=== PATIENT | female | born 1985 | race Caucasian/White ===

== ENCOUNTER 2019-07-21 17:53 | Emergency (ER) | payer BC ==
[2019-07-21] MEDS ORDERED: KETOROLAC 30 MG/ML 1 ML VIAL IM STA (18:25)
--- NOTE | 2019-07-21 18:30 | ED ---
General Adult HPI - General Chief complaint: Upper Respiratory Infection Stated complaint: SOB, cough Time Seen by Provider: 07/21/19 18:08 Source: patient, RN notes reviewed, old records reviewed Mode of arrival: ambulatory Limitations: no limitations - History of Present Illness Initial comments: 34-year-old female presented for evaluation of cough, sore throat, fever. Patient states for the past 3 days she's had a nonproductive dry cough. She's had sore throat. She's had diffuse myalgias and fever and chills. She has been self quarantining secondary to [place] virus pandemic. She has no known contacts with the virus. History of fibromyalgia previous tobacco use. No vomiting or diarrhea. No one else is sick in the home. - Related Data Home Medications Medication Instructions Recorded Confirmed ALPRAZolam [Xanax] 0.5 mg PO BID PRN 07/21/19 07/21/19 Albuterol Inhaler [Ventolin Hfa 2 puff INHALATION RT-Q6H PRN 07/21/19 07/21/19 Inhaler] Budesonide/Formoterol Fumarate 2 puff INHALATION RT-BID 07/21/19 07/21/19 [Symbicort 160-4.5 Mcg Inhaler] Gabapentin [Neurontin] 300 mg PO BID 07/21/19 07/21/19 Levothyroxine Sodium [Synthroid] 75 mcg PO DAILY 07/21/19 07/21/19 Levothyroxine Sodium [Synthroid] 200 mcg PO DAILY 07/21/19 07/21/19 Propranolol [Inderal] 10 mg PO BID 07/21/19 07/21/19 QUEtiapine XR [SEROquel XR] 150 mg PO HS 07/21/19 07/21/19 Valsartan/Hydrochlorothiazide 1 tab PO DAILY 07/21/19 07/21/19 [Valsartan-Hctz 80-12.5 mg Tab] hydrOXYzine HCL [Atarax] 50 mg PO TID PRN 07/21/19 07/21/19 traZODone HCL 150 mg PO HS 07/21/19 07/21/19 Previous Rx's Medication Instructions Recorded Ibuprofen [Motrin] 600 mg PO Q8HR PRN #24 tab 07/21/19 Allergies Allergy/AdvReac Type Severity Reaction Status Date / Time No Known Allergies Allergy Verified 07/21/19 19:08 Review of Systems ROS Statement: Those systems with pertinent positive or pertinent negative responses have been documented in the HPI. ROS Other: All systems not noted in ROS Statement are negative. Past Medical History Past Medical History: Thyroid Disorder Additional Past Medical History / Comment(s): ovarian cyst History of Any Multi-Drug Resistant Organisms: None Reported Past Surgical History: Breast Surgery, Section Past Psychological History: Anxiety, Bipolar, Depression, PTSD Smoking Status: Former smoker Past Alcohol Use History: Occasional Past Drug Use History: Marijuana General Exam Limitations: no limitations General appearance: alert, in no apparent distress Head exam: Present: atraumatic, normocephalic Eye exam: Present: normal appearance, PERRL ENT exam: Present: mucous membranes moist, other (Mild pharyngeal erythema, no tonsillar swelling or exudate) Neck exam: Present: normal inspection. Absent: tenderness, meningismus Respiratory exam: Present: normal lung sounds bilaterally, other (Good air entry, no tachypnea, no wheezing, no rhonchi or rales.). Absent: respiratory distress, wheezes, rales, rhonchi Cardiovascular Exam: Present: regular rate, normal rhythm, normal heart sounds GI/Abdominal exam: Present: soft. Absent: distended, tenderness, guarding, rebound Extremities exam: Present: normal inspection, normal capillary refill. Absent: pedal edema, calf tenderness Neurological exam: Present: alert, oriented X3, CN II-XII intact. Absent: motor sensory deficit Psychiatric exam: Present: normal affect, normal mood Skin exam: Present: warm, dry, intact. Absent: cyanosis, diaphoretic Course Vital Signs 07/21/19 17:59 Temperature 98.8 F Pulse Rate 93 Respiratory 20 Rate Blood Pressure 154/68 O2 Sat by Pulse 98 Oximetry Medical Decision Making - Medical Decision Making 34-year-old female with constellation of symptoms likely reflecting viral infection, possible coronavirus. She is not hypoxic, no respiratory distress, lungs are clear. She is well-appearing with stable vitals. Chest x-rays performed this is negative for focal pneumonia, no acute findings. She's given Toradol and tramadol for pain. She will closely monitor symptoms at home. Secondary complaint of ovarian cyst with history of ovarian cysts. Ultrasound is performed which does show small left ovarian cysts as well as a cervical cyst. No acute findings, no evidence to inversion. Patient repeatedly asking for narcotics, asking to be discharged with [place] prescription. I do feel that this patient is exhibiting drug-seeking behavior. She's given adequate pain control the emergency department and will be discharged with anti-inflammator ies, no narcotic medications given. She will return with any worsening dyspnea worsening symptoms of any kind. She will follow with her primary care physician. - Lab Data Lab Results 07/21/19 07/21/19 Range/Units 19:35 19:37 Urine Color Yellow Urine Appearance Clear (Clear) Urine pH 5.5 (5.0-8.0) Ur Specific [place] 1.021 (1.001-1.035) Urine Protein Negative (Negative) Urine Glucose (UA) Negative (Negative) Urine Ketones Negative (Negative) Urine Blood Negative (Negative) Urine Nitrite Negative (Negative) Urine Bilirubin Negative (Negative) Urine Urobilinogen <2.0 (<2.0) mg/dL Ur Leukocyte Esterase Negative (Negative) Urine HCG, Qual Not Detected (Not Detectd) Disposition Clinical Impression: Viral infection, Ovarian cyst Disposition: HOME SELF-CARE Condition: Good Instructions (If sedation given, give patient instructions): Upper Respiratory Infection (ED), Ovarian Cyst (ED) Prescriptions: Ibuprofen [Motrin] 600 mg PO Q8HR PRN #24 tab PRN Reason: Pain Is patient prescribed a controlled substance at d/c from ED?: No Referrals: None,Stated [Primary Care Provider] - 1-2 days Pedro Norris MD [STAFF PHYSICIAN] - 1-2 days Time of Disposition: 20:30
[2019-07-21] MEDS: traMADol 50 MG TAB PO STA ×2 (18:52→19:03)
--- NOTE | 2019-07-21 19:26 | XR ---
EXAMINATION TYPE: XR chest 1V portable DATE OF EXAM: 07/21/2019 COMPARISON: NONE HISTORY: Chest pain TECHNIQUE: Single frontal view of the chest is obtained. FINDINGS: There is no focal air space opacity, pleural effusion, or pneumothorax seen. The cardiac silhouette size is within normal limits. The osseous structures are intact. IMPRESSION: 1. No acute process.
[2019-07-21 19:44] LABS: Appearance,Urine Clear (Clear); Bilirubin,Urine Negative (Negative); Blood,Urine Negative (Negative); Color,Urine Yellow; Glucose,Urine (UA) Negative (Negative); Ketones,Urine Negative (Negative); Leukocyte Esterase,Urine Negative (Negative); Nitrite,Urine Negative (Negative); PH, Urine 5.5 (5.0-8.0); Protein,Urine Negative (Negative); Specific Gravity,Urine 1.021 (1.001-1.035); Urobilinogen,Urine <2.0 mg/dL (<2.0)
[2019-07-21] MEDS ORDERED: ALPRAZolam 0.5 MG TAB PO STA (19:56)
--- NOTE | 2019-07-21 20:23 | US ---
EXAMINATION TYPE: US transvaginal DATE OF EXAM: 07/21/2019 COMPARISON: NONE CLINICAL HISTORY: pelvic pain. Pelvic pain x 2 days. Hx ovarian cyst. . TECHNIQUE: Transvaginal (TV). Date of LMP: 07/17/2019 EXAM MEASUREMENTS: Uterus: 7.9 x 5.4 x 4.1 cm Endometrial Stripe: Not clearly distinguished. Right Ovary: Not seen. Left Ovary: 3.8 x 2.5 x 2.1 cm 1. Uterus: Anteverted. Appears heterogeneous. Multiple anechoic areas seen. Largest measures: 0.8 x 0.7 x 0.6 cm. 2. Endometrium: Not clearly distinguished. 3. Right Ovary: Not seen. 4. Left Ovary: Measures slightly enlarged. Multiple anechoic areas seen. Some appear to be septated. Largest measures: 1.9 x 1.5 x 0.9 cm. Spectral, color and waveform doppler imaging shows good arterial and venous flow within the left ov nancy; there is no evidence for ovarian torsion of the left ovary. Right ovary is not seen by ultrasoun d. 5. Bilateral Adnexa: Appear to be wnl 6. Posterior cul-de-sac: Appears to be wnl IMPRESSION: Small cervical cysts. Simple left ovarian cyst. No evidence of ovarian torsion.
[2019-07-21] MEDS ORDERED: HYDROcodone/APAP 5-325MG 1 EACH TAB PO STA (20:28)
[2019-07-21 20:47] VITALS: BP 137/77; PULSE 74; RESP 18; TEMP 98
== END 2019-07-21 20:48 | disposition home or self-care (01) ==
LOC: EC 17:53
DX: B34.9 Viral infection, unspecified (principal); N83.202 Unspecified ovarian cyst, left side; N88.8 Other specified noninflammatory disorders of cervix uteri; F41.9 Anxiety disorder, unspecified; F31.9 Bipolar disorder, unspecified; E07.9 Disorder of thyroid, unspecified; Z79.51 Long term (current) use of inhaled steroids; Z79.890 Hormone replacement therapy; Z79.899 Other long term (current) drug therapy; Z87.891 Personal history of nicotine dependence; Z76.5 Malingerer [conscious simulation]
CPT/HCPCS: 71045; 76830; 81003; 81025; 93976; 99285

== ENCOUNTER 2020-11-17 11:15 | Emergency (ER) | payer BC ==
[2020-11-17 11:20] VITALS: TEMP 98.1
[2020-11-17] MEDS ORDERED: KETOROLAC 15 MG/ML 1 ML VIAL IVP STA (11:53)
[2020-11-17] MEDS ORDERED: SODIUM CHLORIDE 0.9% 1,000 ML IV STA (11:53)
[2020-11-17] MEDS ORDERED: ONDANSETRON 4 MG/2 ML VIAL IVP STA ×2 (11:54→12:50)
[2020-11-17 12:22] LABS: Appearance,Urine Clear (Clear); Basophils # (A) 0.1 k/uL (0-0.2); Basophils % (A) 2 %; Bilirubin,Urine Negative (Negative); Blood,Urine Negative (Negative); Color,Urine Yellow; Eosinophils # (A) 0.4 k/uL (0-0.7); Eosinophils % (A) 5 %; Glucose,Urine (UA) Negative (Negative); HCT 42.6 % (34.0-46.0); HGB 13.9 gm/dL (11.4-16.0); Ketones,Urine Negative (Negative); Leukocyte Esterase,Urine Negative (Negative); Lymphocytes # (A) 1.8 k/uL (1.0-4.8); Lymphocytes % (A) 23 %; MCH 31.5 pg (25.0-35.0); MCHC 32.7 g/dL (31.0-37.0); MCV 96.5 fL (80.0-100.0); Monocytes # (A) 0.5 k/uL (0-1.0); Monocytes % (A) 6 %; Neutrophils % (A) 62 %; Nitrite,Urine Negative (Negative); PH, Urine 5.5 (5.0-8.0); Platelet Count 310 k/uL (150-450); Protein,Urine Negative (Negative); RBC 4.41 m/uL (3.80-5.40); RDW 14.7 % (11.5-15.5); Specific Gravity,Urine 1.013 (1.001-1.035); Urobilinogen,Urine <2.0 mg/dL (<2.0); WBC 8.1 k/uL (3.8-10.6)
[2020-11-17] MEDS ORDERED: HYDROmorphone 1 MG/ML 1 ML SYRINGE IVP STA (12:29)
--- NOTE | 2020-11-17 12:30 | CT ---
EXAMINATION TYPE: CT abdomen pelvis wo con DATE OF EXAM: 11/17/2020 COMPARISON: HISTORY: right flank pain CT DLP: 1219 mGycm Automated exposure control for dose reduction was used. TECHNIQUE: Helical acquisition of images was performed from the lung bases through the pelvis. FINDINGS: LUNG BASES: No significant abnormality is appreciated. LIVER/GB: No significant abnormality is appreciated. PANCREAS: No significant abnormality is seen. SPLEEN: No significant abnormality is seen. ADRENALS: No significant abnormality is seen. KIDNEYS: No significant abnormality is seen. FREE AIR: No free air is visualized RETROPERITONEAL ADENOPATHY: None visualized URINARY BLADDER: No significant abnormality is seen. PELVIC ADENOPATHY: None visualized. OSSEOUS STRUCTURES: No significant abnormality is seen. BOWEL: No significant abnormality is seen. Appendix normal. OTHER: Aorta of normal caliber. No free fluid symmetric prominence of the right ovary measuring 3.5 c m. IMPRESSION: 1. ASYMMETRIC PROMINENCE OF THE RIGHT OVARY MEASURING 3.5 CM. COULD REPRESENT NORMAL OVARY IF THERE A RE SYMPTOMS RELATED TO THE REGION CORRELATE WITH PELVIC ULTRASOUND WHICH WOULD BE MORE SENSITIVE EXAM INATION. 2. CORRELATE FOR CONSTIPATION.
[2020-11-17 13:01] LABS: ALT 40 U/L (4-34); AST 37 U/L (14-36); African American GFR (CKD) >90 (>60 ml/min/1.73 sqM); Albumin 4.7 g/dL (3.5-5.0); Alkaline Phosphatase 83 U/L (38-126); Amylase 75 U/L (30-110); Anion Gap 10 mmol/L; Blood Urea Nitrogen 17 mg/dL (7-17); Calcium 10.3 mg/dL (8.4-10.2); Carbon Dioxide 26 mmol/L (22-30); Chloride 102 mmol/L (98-107); Glucose 88 mg/dL (74-99); Lipase 151 U/L (23-300); Non-African American GFR(CKD) >90 (>60 ml/min/1.73 sqM); Potassium 4.7 mmol/L (3.5-5.1); Sodium 138 mmol/L (137-145); Total Bilirubin 0.2 mg/dL (0.2-1.3); Total Protein 7.4 g/dL (6.3-8.2)
--- NOTE | 2020-11-17 13:39 | ED ---
General Adult HPI - General Chief complaint: Back Pain/Injury Stated complaint: Kidney Stones Time Seen by Provider: 11/17/20 11:28 Source: patient Mode of arrival: ambulatory Limitations: no limitations - History of Present Illness Initial comments: 35-year-old female presents to the emergency room for right lower back pain. Patient reports that she feels like she has a kidney stone. Patient has had kidney stone before. She states it radiates down her back. She denies it radiating into her abdomen. Patient did not take anything for pain prior to arrival. Patient is started this morning.Patient has no other complaints at this time including shortness of breath, chest pain, abdominal pain, nausea or vomiting, headache, or visual changes. - Related Data Home Medications Medication Instructions Recorded Confirmed ALPRAZolam [Xanax] 0.5 mg PO DAILY 07/21/19 11/17/20 Albuterol Inhaler [Ventolin Hfa 1 - 2 puff INHALATION RT-Q4H PRN 07/21/19 11/17/20 Inhaler] Gabapentin [Neurontin] 300 mg PO BID 07/21/19 11/17/20 Valsartan/Hydrochlorothiazide 1 tab PO DAILY 07/21/19 11/17/20 [Valsartan-Hctz 80-12.5 mg Tab] traZODone HCL 150 mg PO HS 07/21/19 11/17/20 Celecoxib [CeleBREX] 200 mg PO BID 11/17/20 11/17/20 Ergocalciferol [Vitamin D2 (1250 1,250 mcg PO Q7D 11/17/20 11/17/20 Mcg = 74060 Iu)] Levothyroxine Sodium [Synthroid] 175 mcg PO DAILY 11/17/20 11/17/20 QUEtiapine [SEROquel] 100 mg PO HS 11/17/20 11/17/20 Thyroid, Pork [[place] Thyroid] 30 mg PO DAILY 11/17/20 11/17/20 Thyroid,Pork [[place] Thyroid] 15 mg PO DAILY 11/17/20 11/17/20 tiZANidine [Zanaflex] 4 mg PO BID 11/17/20 11/17/20 Allergies Allergy/AdvReac Type Severity Reaction Status Date / Time No Known Allergies Allergy Verified 11/17/20 14:04 Review of Systems ROS Statement: Those systems with pertinent positive or pertinent negative responses have been documented in the HPI. ROS Other: All systems not noted in ROS Statement are negative. Past Medical History Past Medical History: Thyroid Disorder Additional Past Medical History / Comment(s): ovarian cyst History of Any Multi-Drug Resistant Organisms: None Reported Past Surgical History: Breast Surgery, Section Past Psychological History: Anxiety, Bipolar, Depression, PTSD Smoking Status: Current some day smoker Past Alcohol Use History: Occasional Past Drug Use History: Marijuana General Exam Limitations: no limitations General appearance: alert Head exam: Present: atraumatic Eye exam: Present: normal appearance, PERRL, EOMI. Absent: scleral icterus ENT exam: Present: normal exam, mucous membranes moist Neck exam: Present: normal inspection, full ROM. Absent: tenderness Respiratory exam: Present: normal lung sounds bilaterally. Absent: respiratory distress, wheezes Cardiovascular Exam: Present: regular rate, normal rhythm, normal heart sounds GI/Abdominal exam: Present: soft, normal bowel sounds. Absent: distended, tenderness, guarding, rebound, rigid Back exam: Absent: paraspinal tenderness, vertebral tenderness Course Vital Signs 11/17/20 11/17/20 11:17 15:51 Temperature 98.1 F Pulse Rate 98 80 Respiratory 17 16 Rate Blood Pressure 142/101 128/79 O2 Sat by Pulse 98 Oximetry Medical Decision Making - Medical Decision Making vitals are stable. Patient presenting with right flank pain stating it is a kidney stone. However we do not have any record of computed tomography scan here in the emergency room. Laboratory evaluation initiated which was unremarkable. CT abdomen and pelvis showed an asymmetric prominence of the right ovary measuring 3.5 cm. Could represent normal ovary but a fair symptoms in the region correlate with pelvic ultrasound. Transvaginal ultrasound was obtained which shows no evidence for ovarian torsion. There are small cysts in the uterus. Could be hematometra. Symptoms are not cyclical. Patient was giving pain medications and did have improvement and almost. This could be related to more of a musculoskeletal back pain. Patient will be discharged home to follow up with primary care. Will return here for any worsening symptoms. - Lab Data Result diagrams: 11/17/20 11:55 11/17/20 11:55 Lab Results 11/17/20 11/17/20 11/17/20 Range/Units 11:55 11:55 11:55 WBC 8.1 (3.8-10.6) k/uL RBC 4.41 (3.80-5.40) m/uL Hgb 13.9 (11.4-16.0) gm/dL Hct 42.6 (34.0-46.0) % MCV 96.5 (80.0-100.0) fL MCH 31.5 (25.0-35.0) pg MCHC 32.7 (31.0-37.0) g/dL RDW 14.7 (11.5-15.5) % Plt Count 310 (150-450) k/uL MPV 7.0 Neutrophils % 62 % Lymphocytes % 23 % Monocytes % 6 % Eosinophils % 5 % Basophils % 2 % Neutrophils # 5.0 (1.3-7.7) k/uL Lymphocytes # 1.8 (1.0-4.8) k/uL Monocytes # 0.5 (0-1.0) k/uL Eosinophils # 0.4 (0-0.7) k/uL Basophils # 0.1 (0-0.2) k/uL Sodium (137-145) mmol/L Potassium (3.5-5.1) mmol/L Chloride (98-107) mmol/L Carbon Dioxide (22-30) mmol/L Anion Gap mmol/L BUN (7-17) mg/dL Creatinine (0.52-1.04) mg/dL Est GFR (CKD-EPI)AfAm (>60 ml/min/1.73 sqM) Est GFR (CKD-EPI)NonAf (>60 ml/min/1.73 sqM) Glucose (74-99) mg/dL Calcium (8.4-10.2) mg/dL Total Bilirubin (0.2-1.3) mg/dL AST (14-36) U/L ALT (4-34) U/L Alkaline Phosphatase (38-126) U/L Total Protein (6.3-8.2) g/dL Albumin (3.5-5.0) g/dL Amylase (30-110) U/L Lipase (23-300) U/L Urine Color Yellow Urine Appearance Clear (Clear) Urine pH 5.5 (5.0-8.0) Ur Specific [place] 1.013 (1.001-1.035) Urine Protein Negative (Negative) Urine Glucose (UA) Negative (Negative) Urine Ketones Negative (Negative) Urine Blood Negative (Negative) Urine Nitrite Negative (Negative) Urine Bilirubin Negative (Negative) Urine Urobilinogen <2.0 (<2.0) mg/dL Ur Leukocyte Esterase Negative (Negative) Urine HCG, Qual Not Detected (Not Detectd) 11/17/20 Range/Units 11:55 WBC (3.8-10.6) k/uL RBC (3.80-5.40) m/uL Hgb (11.4-16.0) gm/dL Hct (34.0-46.0) % MCV (80.0-100.0) fL MCH (25.0-35.0) pg MCHC (31.0-37.0) g/dL RDW (11.5-15.5) % Plt Count (150-450) k/uL MPV Neutrophils % % Lymphocytes % % Monocytes % % Eosinophils % % Basophils % % Neutrophils # (1.3-7.7) k/uL Lymphocytes # (1.0-4.8) k/uL Monocytes # (0-1.0) k/uL Eosinophils # (0-0.7) k/uL Basophils # (0-0.2) k/uL Sodium 138 (137-145) mmol/L Potassium 4.7 (3.5-5.1) mmol/L Chloride 102 (98-107) mmol/L Carbon Dioxide 26 (22-30) mmol/L Anion Gap 10 mmol/L BUN 17 (7-17) mg/dL Creatinine 0.78 (0.52-1.04) mg/dL Est GFR (CKD-EPI)AfAm >90 (>60 ml/min/1.73 sqM) Est GFR (CKD-EPI)NonAf >90 (>60 ml/min/1.73 sqM) Glucose 88 (74-99) mg/dL Calcium 10.3 H (8.4-10.2) mg/dL Total Bilirubin 0.2 (0.2-1.3) mg/dL AST 37 H (14-36) U/L ALT 40 H (4-34) U/L Alkaline Phosphatase 83 (38-126) U/L Total Protein 7.4 (6.3-8.2) g/dL Albumin 4.7 (3.5-5.0) g/dL Amylase 75 (30-110) U/L Lipase 151 (23-300) U/L Urine Color Urine Appearance (Clear) Urine pH (5.0-8.0) Ur Specific [place] (1.001-1.035) Urine Protein (Negative) Urine Glucose (UA) (Negative) Urine Ketones (Negative) Urine Blood (Negative) Urine Nitrite (Negative) Urine Bilirubin (Negative) Urine Urobilinogen (<2.0) mg/dL Ur Leukocyte Esterase (Negative) Urine HCG, Qual (Not Detectd) Disposition Clinical Impression: Back pain Disposition: HOME SELF-CARE Condition: Good Instructions (If sedation given, give patient instructions): Acute Low Back Pain (ED) Additional Instructions: Follow-up with your doctor in one to 2 days. Return to the emergency room for any worsening symptoms. Is patient prescribed a controlled substance at d/c from ED?: No Referrals: Aly Jim MD [Primary Care Provider] - 1-2 days Time of Disposition: 15:42
[2020-11-17] MEDS ORDERED: HYDROmorphone 0.5 MG/0.5 ML SYRINGE IVP STA (14:32)
--- NOTE | 2020-11-17 14:55 | US ---
EXAMINATION TYPE: US pelvis complete transvag flow Doppler DATE OF EXAM: 11/17/2020 COMPARISON: CT same day CLINICAL HISTORY: 35 year-old female right lower back pain. RLQ and right back pain x 2 days TECHNIQUE: Transvaginal sonographic images were medically necessary as patient emptied bladder. On Do ppler spectral waveform analysis of the ovarian arteries and veins. ; endometrial ablation per patient; C Section x 1; irregular menses as has Grave's Disease per p atient. Date of LMP: October 2020 FINDINGS: EXAM MEASUREMENTS: Uterus: 7.2 x 4.5 x 3.8 Endometrial Stripe: no endometrial tissue seen Right Ovary: 2.9 x 2.4 x 2.2cm Left Ovary: 2.4 x 1.9 x 2.6cm 1. Uterus: Multiple Nabothian Cysts, largest = 0.6 x 0.8 x 0.6cm ; upper left myometrial cyst seen = 0.7 x 0.6 x 0.6cm. 2. Endometrium: post ablation (patient unsure what year); cyst noted central fundal region measuring 1.1 x 1.2 x 0.8cm 3. Right Ovary: multiple small follicles seen with largest = 0.7 x 0.7 x 0.5cm. 4. Left Ovary: multiple small follicles seen Spectral, color and waveform doppler imaging shows good arterial and venous flow within the ovaries ; there is no evidence for ovarian torsion. 5. Bilateral Adnexa: wnl 6. Posterior cul-de-sac: wnl IMPRESSION: 1. Lingular changes in the ovaries. No sonographic evidence for ovarian torsion. 2. A 1.2 cm cystic area along the central fundus and a smaller 7 mm myometrial cyst towards the left along the fundus. If the patient has cyclical pain, small areas of hematometra postablation should be considered.
[2020-11-17] MEDS ORDERED: ACET/COD 300 MG/30 MG STARTER PACK 6 TAB BTL PO STA (15:45)
[2020-11-17 15:52] VITALS: BP 128/79; PULSE 80; RESP 16
== END 2020-11-17 15:52 | disposition home or self-care (01) ==
LOC: EC 11:15
DX: M54.5 Low back pain (principal); E07.9 Disorder of thyroid, unspecified; F41.9 Anxiety disorder, unspecified; F32.9 Major depressive disorder, single episode, unspecified; F17.200 Nicotine dependence, unspecified, uncomplicated; F12.90 Cannabis use, unspecified, uncomplicated
CPT/HCPCS: 99284; 96374; 96375 ×2; 96376 ×2; 96361; 36415; 80053; 82150; 83690; 85025; 81003; 81025; 93975; 76830; 74176; J2405; J1170 ×2; J1885